=== PATIENT | male | born 1945 | race Two or more races ===

== ENCOUNTER 2023-06-19 09:30 | Inpatient (IN) | payer OTHER ==
[2023-06-19] MEDS ORDERED: PEPCID AC20 MG PO (11:46)
[2023-06-19] MEDS ORDERED: COZAAR50 MG PO (11:46)
[2023-06-19] MEDS ORDERED: GLUMETZA1000 MG (11:46)
[2023-06-19] MEDS ORDERED: HIERRO (11:47)
[2023-06-19] MEDS ORDERED: TAMS0.4C PO (11:48)
[2023-06-19] MEDS ORDERED: VITAMINA D (11:48)
[2023-06-19] MEDS ORDERED: ATORVASTATIN CA10 MG PO (11:49)
[2023-06-19] MEDS ORDERED: GLIPIZIDE XL10 MG PO (11:49)
[2023-06-19] MEDS ORDERED: SERTRALINE 100MG (11:49)
[2023-06-19] MEDS ORDERED: NEURONTIN600 M1 PO (11:50)
[2023-06-19] MEDS ORDERED: OMEGA 3 (11:50)
[2023-06-19] MEDS ORDERED: MUCINEX (11:50)
[2023-06-29] MEDS ORDERED: D3-200050 MCG (08:04)
[2023-06-29] MEDS ORDERED: FERROUS SULFAT325 MG (08:04)
[2023-06-29] MEDS ORDERED: SERTRALINE HCL100 MG (08:04)
[2023-06-29] MEDS ORDERED: COMBIGAN EYE DRO5 ML (08:04)
[2023-06-29] MEDS ORDERED: AMLODIPINE BESYL5 MG (08:04)
[2023-06-29] MEDS ORDERED: LATANOPROST2.5 ML (08:05)
[2023-06-29] MEDS ORDERED: OMEGA-31000 MG (08:05)
[2023-06-29] MEDS ORDERED: IRON325 MG (08:06)
[2023-06-29] MEDS ORDERED: MUCINEX600 MG (08:07)
[2023-06-30 06:59] LABS: HEMOGLOBIN 12.8 g/dL (13-16.00); MEAN CELL VOLUME 91.3 fL (80.0-100.00); MEAN CORPUSCULAR HGB CONC 32.9 g/dl (32.0-36.0); RED BLOOD COUNT 4.27 M/uL (4.00-6.00); RED CELL DISTRIBUTION WIDTH 14.8 % (11.5-14.5)
[2023-06-30 07:02] LABS: ALBUMIN 3.5 gm/dL (3.4-5.0); CALCIUM 8.8 mg/dL (8.5-10.1); CREATININE SERUM 2.6 mg/dL (0.70-1.30); GFR 24.12; PHOSPHOROUS 5.1 mg/dL (2.5-4.9); POTASSIUM 4.87 mEq/L (3.5-5.1)
[2023-06-30 07:59] LABS: PLATELET COUNT 191 K/uL (150-450)
[2023-07-01 06:42] LABS: HEMATOCRIT 35.1 % (39.0-48.0); HEMOGLOBIN 11.7 g/dL (13-16.00); MEAN CELL VOLUME 92.2 fL (80.0-100.00); MEAN CORPUSCULAR HEMOGLOBIN 30.6 pg (27.00-32.0); MEAN CORPUSCULAR HGB CONC 33.2 g/dl (32.0-36.0); PLATELET COUNT 162 K/uL (150-450); RED BLOOD COUNT 3.81 M/uL (4.00-6.00); RED CELL DISTRIBUTION WIDTH 14.8 % (11.5-14.5)
[2023-07-01 06:55] LABS: CALCIUM 8.8 mg/dL (8.5-10.1); CREATININE SERUM 2.7 mg/dL (0.70-1.30); GFR 23.09; MAGNESIUM 2.4 mg/dL (1.8-2.4); PHOSPHOROUS 3.3 mg/dL (2.5-4.9); POTASSIUM 5.04 mEq/L (3.5-5.1)
[2023-07-01 19:08] LABS: URINE APPEARANCE Cloudy; URINE BILIRRUBIN Negative (NEGATIVE); URINE BLOOD Large; URINE COLOR Yellow; URINE LEUKOCYTE Moderate; URINE NITRATE Negative; URINE UROBILINOGEN 0.2 E.U./dl
[2023-07-01 19:12] LABS: URINE BACTERIA 336.4 uL (0.0-1933); URINE EPITHELIAL CELLS 22.5 uL (0.0-38.8); URINE RBC 2034.7 uL (0.0-20.8); URINE WBC 238.6 uL (0.0-23.2)
[2023-07-01 19:33] LABS: URINE GLUCOSE 100 MG/DL (NEGATIVE); URINE PROTEIN 100 (NEGATIVE)
[2023-07-02 06:48] LABS: HEMATOCRIT 34.4 % (39.0-48.0); HEMOGLOBIN 11.4 g/dL (13-16.00); MEAN CELL VOLUME 92.3 fL (80.0-100.00); MEAN CORPUSCULAR HEMOGLOBIN 30.5 pg (27.00-32.0); PLATELET COUNT 143 K/uL (150-450); RED BLOOD COUNT 3.73 M/uL (4.00-6.00); RED CELL DISTRIBUTION WIDTH 14.7 % (11.5-14.5)
[2023-07-02 06:58] LABS: ALBUMIN 2.9 gm/dL (3.4-5.0); CALCIUM 8.9 mg/dL (8.5-10.1); CREATININE SERUM 2.49 mg/dL (0.70-1.30); GFR 25.35; MAGNESIUM 2.3 mg/dL (1.8-2.4); PHOSPHOROUS 2.6 mg/dL (2.5-4.9); POTASSIUM 4.75 mEq/L (3.5-5.1)
[2023-07-02 07:06] LABS: ALKALINE PHOSPHATASE 57 U/L (50-136); ANION GAP 9 (10.0-20.0); AST/SGOT 20 U/L (15-37); BILIRUBIN TOTAL 0.86 mg/dL (0.3-1.2); BLOOD UREA NITROGEN 36 mg/dL (7-18); BUN CREA RATIO 14 (7.0-25.0); CALCIUM 9.1 mg/dL (8.5-10.1); CARBON DIOXIDE 28 mEq/L (21-32); CHLORIDE 103 mmol/L (98-107); CREATININE SERUM 2.52 mg/dL (0.70-1.30); GLOBULINA 3.8 G/DL (2.4-3.5); GLUCOSE FASTING 161 mg/dL (65-100); OSMOLALITY SERUM 284 MOSM/KG (275-295); POTASSIUM 4.45 mEq/L (3.5-5.1); SODIUM 136 mmol/L (136-145); TOTAL PROTEIN 6.8 gm/dL (6.4-8.2)
[2023-07-02 07:09] LABS: ALT/SGPT < 6 U/L (12-78)
[2023-07-03 11:29] LABS: HEMATOCRIT 31.5 % (39.0-48.0); HEMOGLOBIN 10.6 g/dL (13-16.00); MEAN CORPUSCULAR HEMOGLOBIN 30.5 pg (27.00-32.0); MEAN CORPUSCULAR HGB CONC 33.5 g/dl (32.0-36.0); PLATELET COUNT 178 K/uL (150-450); RED BLOOD COUNT 3.46 M/uL (4.00-6.00); RED CELL DISTRIBUTION WIDTH 15.4 % (11.5-14.5)
[2023-07-03 12:04] LABS: ALBUMIN 2.8 gm/dL (3.4-5.0); BILIRUBIN TOTAL 0.73 mg/dL (0.3-1.2); CALCIUM 8.8 mg/dL (8.5-10.1); CREATININE SERUM 2.37 mg/dL (0.70-1.30); GFR 26.84; MAGNESIUM 2.4 mg/dL (1.8-2.4); PHOSPHOROUS 2.6 mg/dL (2.5-4.9); POTASSIUM 4.6 mEq/L (3.5-5.1); TOTAL PROTEIN 6.8 gm/dL (6.4-8.2)
[2023-07-03 12:09] LABS: C-REACTIVE PROTEIN 17.9 MG/DL (0.00-0.29)
== END 2023-07-04 11:59 | disposition home or self-care (01) | DRG 658 ==
LOC: SURG 06-29 05:30 → O/R 06-29 05:30 → SURH 06-29 09:30 → SURG 06-29 14:42
PROVIDERS: Internal Medicine Infectious Disease; Internal Medicine Nephrology; ADMIT Urology; ATTEND Urology
PROC: 0TT64ZZ Resection of Right Ureter, Percutaneous Endoscopic Approach (ICD-10-PCS; 2023-06-29)
PROC: 0TT04ZZ Resection of Right Kidney, Percutaneous Endoscopic Approach (ICD-10-PCS; principal; 2023-06-29 10:30)
PROC: BW24ZZZ Computerized Tomography (CT Scan) of Chest and Abdomen (ICD-10-PCS; 2023-07-02)
DX: C65.1 Malignant neoplasm of right renal pelvis (principal); R50.82 Postprocedural fever; E78.5 Hyperlipidemia, unspecified; Z20.822 Contact with and (suspected) exposure to COVID-19; I12.9 Hypertensive chronic kidney disease with stage 1 through stage 4 chronic kidney disease, or unspecified chronic kidney disease; E11.22 Type 2 diabetes mellitus with diabetic chronic kidney disease; N18.9 Chronic kidney disease, unspecified

== ENCOUNTER 2023-10-19 08:00 | Outpatient (CLI) | payer OTHER ==
[~2023-10-19] VITALS: Ht 170.2 cm; Wt 86.2 kg
[~2023-10-19 08:00] MED LIST: AMLODIPINE BESYL5 MG; ATORVASTATIN CA10 MG PO; COMBIGAN EYE DRO5 ML; COZAAR50 MG PO; D3-200050 MCG; FERROUS SULFAT325 MG; GLIPIZIDE XL10 MG PO; GLUMETZA1000 MG; HIERRO; IRON325 MG; LATANOPROST2.5 ML; MUCINEX; MUCINEX600 MG; NEURONTIN600 M1 PO; OMEGA 3; OMEGA-31000 MG; PEPCID AC20 MG PO; SERTRALINE 100MG; SERTRALINE HCL100 MG; TAMS0.4C PO; VITAMINA D
[2023-10-19] MEDS ORDERED: GLIPIZIDE XL2.5 MG PO (09:24)
[2023-10-19] MEDS ORDERED: COZAAR50 MG PO (09:25)
[2023-10-19] MEDS ORDERED: ZOLOFT100 MG PO (09:25)
[2023-10-19] MEDS ORDERED: GRALISE600 MG PO (09:25)
[2023-10-19] MEDS ORDERED: PEPCID AC20 MG PO (09:25)
[2023-10-19] MEDS ORDERED: VITAMIN D310 MCG/1 M PO (09:26)
[2023-10-19] MEDS ORDERED: IRON236 MG PO (09:26)
[2023-10-19] MEDS ORDERED: TAMS0.4C PO (09:26)
[2023-10-19 10:14] LABS: HEMATOCRIT 40.7 % (39.0-48.0); HEMOGLOBIN 13.4 g/dL (13-16.00); MEAN CELL VOLUME 91.9 fL (80.0-100.00); MEAN CORPUSCULAR HEMOGLOBIN 30.4 pg (27.00-32.0); PLATELET COUNT 179 K/uL (150-450); RED BLOOD COUNT 4.43 M/uL (4.00-6.00); RED CELL DISTRIBUTION WIDTH 14.6 % (11.5-14.5)
[2023-10-19 10:19] LABS: PH,URINE 5.5 (5.0-8.0); URINE APPEARANCE Clear; URINE BILIRRUBIN Negative (NEGATIVE); URINE BLOOD Small; URINE COLOR Yellow; URINE GLUCOSE Negative (NEGATIVE); URINE LEUKOCYTE Negative; URINE NITRATE Negative; URINE UROBILINOGEN 0.2 E.U./dl
[2023-10-19 10:28] LABS: URINE BACTERIA 64.2 uL (0.0-1933); URINE EPITHELIAL CELLS 1.8 uL (0.0-38.8); URINE RBC 40.8 uL (0.0-20.8); URINE WBC 7.8 uL (0.0-23.2)
[2023-10-19 10:36] LABS: URINE PROTEIN 100 (NEGATIVE)
[2023-10-19 10:50] LABS: CALCIUM 9.5 mg/dL (8.5-10.1); CREATININE SERUM 3.26 mg/dL (0.70-1.30); GFR 18.53; POTASSIUM 5.36 mEq/L (3.5-5.1)
[2023-10-19 10:51] LABS: INR 1.01; PROTHROMBIN TIME 10.6 SECONDS (9.0-11.5)
== END 2023-10-19 08:01 | disposition home or self-care (01) ==
LOC: RAD 08:00 → CIR.AMB 10-21 08:44 → EDSTATUS 10-21 13:15
PROVIDERS: ATTEND Urology
DX: D65 Disseminated intravascular coagulation [defibrination syndrome] (principal); I10 Essential (primary) hypertension; C65.1 Malignant neoplasm of right renal pelvis; C67.9 Malignant neoplasm of bladder, unspecified